=== PATIENT | male | born 1945 | race Caucasian/White ===

== ENCOUNTER 2017-12-15 21:28 | Inpatient (IN) | payer OTHER, MEDICARE ==
[~2017-12-15] VITALS: Ht 172.7 cm; Wt 79.0 kg
[~2017-12-15 21:28] MED LIST: ASPI-516 CHEW; ASPI1TAB7 PO; GLUCTAB PO; INSU1INJ13 SQ; LANTUS2P SC; LISI10 PO; LISI10TA3 PO; METF500T4 PO; METFORMIN HOLD POST IV CONTRAST SCH; METO25 PO; METO25TA3 PO; NIFE60TA58 PO; PRIL20CA PO; SIMV40TA PO; SUBO8MIS SL; TAB-TAB PO; TICA1TAB PO; VENL-37 PO; ZOFR4TAB3 PO
[2017-12-16] VITALS (24 sets, daily range): BP systolic 115–158; BP diastolic 54–91; PULSE 46–84; RESP 18–20; TEMP 97.4–98.3; O2SAT 94–98
[2017-12-16] MEDS ORDERED: SODIUM CHLOR 0.9% 1000 ML INJ 1,000 ML IV SCH (00:52)
[2017-12-16] MEDS ORDERED: SODIUM CHLORIDE 0.9% FLUSH 10 ML FLUSH IV FLUSH PRN (01:00)
[2017-12-16] MEDS ORDERED: NITROGLYCERIN-D5W 50 MG/250 ML 250 ML IV PRN (01:00)
[2017-12-16] MEDS ORDERED: DEXTROSE 50% IN WATER 50 ML VIAL(D50) IV PUSH PRN (01:00)
[2017-12-16] MEDS ORDERED: GLUCAGON 1 MG/ML VIAL OTHER PRN (01:00)
[2017-12-16] MEDS ORDERED: ACETAMINOPHEN 325 MG TAB PO PRN (01:00)
[2017-12-16] MEDS ORDERED: HEPARIN-D5W 25,000 U/250 ML 250 ML IV PRN (01:00)
[2017-12-16] MEDS ORDERED: NALOXONE HCL 0.4 MG/ML AMP IV PUSH PRN (01:00)
[2017-12-16] MEDS ORDERED: MAGNESIUM HYDROXIDE SUSP 30 ML CUP PO PRN (01:00)
[2017-12-16] MEDS ORDERED: VENLAFAXINE HCL 25 MG TAB PO ONE (01:30)
--- NOTE | 2017-12-16 01:35 | HHI.HP ---
HPI Service [facility] Hospitalists Primary Care Physician Jose Manuel Gee M.D. Admission Diagnosis NSTEMI Diagnoses: Chief Complaint: Shortness of breath with exertion Travel History International Travel<30 Days: No Contact w/Intl Traveler <30 Da: No Traveled to Known Affected Are: No History of Present Illness This a 72-year-old male patient with past medical history which includes diabetes mellitus, CAD status post cardiac stent 1997 and coronary artery bypass graft 2000, hypertension and TIA with no residual effects as well as basal cell carcinoma removed from the left shoulder. Patient presents to [facility] with complaints of shortness of breath with exertion for the past 3 weeks. Patient reports he had stent placed in the right lower extremity proximally 3 weeks ago since that time he has, "just not felt like himself." Patient reports he experiences shortness of breath and fatigue after minimal exertion such as working on his motorcycle or cars. Patient denies specific chest pain but has had left arm numbness and jaw pain associated with his shortness of breath. Patient denies nausea vomiting or diaphoresis. These episodes last approximately 30 minutes and are relieved with rest. Patient denies nausea vomiting diarrhea constipation fevers chills cough congestion or weight gain. Review of Systems Except as stated in HPI: all other systems reviewed are Neg Past Family Social History Past Medical History diabetes mellitus, CAD status post cardiac stent 1997 and coronary artery bypass graft 2000, hypertension and TIA with no residual effects as well as basal cell carcinoma removed from the left shoulder Past Surgical History Cardiac stent placed 1997, coronary artery bypass graft 5 vessel 2000, right tib-fib repaired with hardware which later became infected and hardware was removed 3 years ago, right shoulder rotator cuff repair, basal cell carcinoma removed from left shoulder, right lower extremity angioplasty with stent placement 3 weeks ago Reported Medications Nifedipine ER 24 HR (Nifedipine) 60 Mg Tab 60 Mg PO DAILY Simvastatin 40 Mg Tab 40 Mg PO HS Metoprolol Tartrate 25 Mg Tab 25 Mg PO BID Tresiba Flextouch Pen Inj (Insulin Degludec Inj) 600 unit/3 ML Pen 46 Units SQ HS Brilinta (Ticagrelor) 60 Mg Tab 60 Mg PO BID Metformin ER (Metformin HCl) 500 Mg Sharmaine 500 Mg PO BID With evening meal Lisinopril 10 Mg Tab 10 Mg PO BID Aspirin 81 Mg Chew 81 Mg CHEW DAILY Effexor 37.5 Mg PO HS Allergies: Coded Allergies: No Known Allergies (Unverified , 04/14/14) Active Ordered Medications Current Medications Medications (Trade) Dose Ordered Sig/Angelica Route Start Time Stop Time Status Last Admin Sodium Chloride 1,000 ml @ 75 mls/hr [id number] IV 12/16/17 00:52 (NS Flush) 2 ml UNSCH PRN IV FLUSH 12/16/17 01:00 (NS Flush) 2 ml BID IV FLUSH 12/16/17 09:00 (Tylenol) 650 mg Q4H PRN PO 12/16/17 01:00 (Narcan Inj) 0.4 mg UNSCH PRN IV PUSH 12/16/17 01:00 (Cinthya-Colace) 1 tab BID PO 12/16/17 09:00 (Milk Of [place] Liq) 30 ml Q12H PRN PO 12/16/17 01:00 Heparin Sodium/ Dextrose 250 ml @ 0 mls/hr TITRATE PRN IV 12/16/17 01:00 UNV Nitroglycerin/ Dextrose 250 ml TITRATE PRN IV 12/16/17 01:00 UNV (Aspirin) 325 mg DAILY PO 12/16/17 09:00 (D50w (Vial) Inj) 50 ml UNSCH PRN IV PUSH 12/16/17 01:00 (Glucagon Inj) 1 mg UNSCH PRN OTHER 12/16/17 01:00 (NovoLOG SUPPLEMENTAL SCALE) 1 ACHS SLIDING SCALE SQ 12/16/17 08:00 (Prinivil) 10 mg BID PO 12/16/17 09:00 (Lopressor) 25 mg BID PO 12/16/17 09:00 (Pravachol) 80 mg HS PO 12/16/17 21:00 Family History Father secondary to [place] is 62 Mother at 68 of cancer unknown type Social History Patient denies EtOH use Quit smoking in 2000 prior to that had a [id number] history Smokes marijuana daily denies other illicit drug use Physical Exam Physical Exam GENERAL: This is a well-nourished, well-developed patient, in no apparent distress. SKIN: No rashes, ecchymoses or lesions. Cool and dry. HEAD: Atraumatic. Normocephalic. No temporal or scalp tenderness. EYES: Extraocular motions intact. No scleral icterus. No injection or drainage. CARDIOVASCULAR: Regular rate and rhythm RESPIRATORY: Clear to auscultation. Breath sounds equal bilaterally. GASTROINTESTINAL: Abdomen soft, non-tender, nondistended. MUSCULOSKELETAL: Extremities without clubbing, cyanosis, or edema. No joint tenderness, effusion, or edema noted. No calf tenderness. Negative Homans sign bilaterally. NEUROLOGICAL: Awake and alert. No focal deficits appreciated. Motor and sensory grossly within normal limits. Five out of 5 muscle strength in all muscle groups. Normal speech. Caprini VTE Risk Assessment Caprini VTE Risk Assessment: Mod/High Risk (score >= 2) Caprini Risk Assessment Model Point Value = 1 Point Value = 2 Point Value = 3 Point Value = 5 Age 41-60 Minor surgery BMI > 25 kg/m2 Swollen legs Varicose veins or History of unexplained or recurrent spontaneous Oral contraceptives or hormone replacement Sepsis (< 1 month) Serious lung disease, including pneumonia (< 1 month) Abnormal pulmonary function Acute myocardial infarction Congestive heart failure (< 1 month) History of inflammatory bowel disease Medical patient at bed rest Age 61-74 Arthroscopic surgery Major open surgery (> 45 min) Laparoscopic surgery (> 45 min) Malignancy Confined to bed (> 72 hours) Immobilizing plaster cast Central venous access Age >= 75 History of VTE Family history of VTE Factor V Leiden Prothrombin [id number] Lupus anticoagulant Anticardiolipin antibodies Elevated serum homocysteine Heparin-induced thrombocytopenia Other congenital or acquired thrombophilia Stroke (< 1 month) Elective arthroplasty Hip, pelvis, or leg fracture Acute spinal cord injury (< 1 month) Prophylaxis Regimen Total Risk Factor Score Risk Level Prophylaxis Regimen 0-1 Low Early ambulation 2 Moderate Order ONE of the following: *Sequential Compression Device (SCD) *Heparin 5000 units SQ BID 3-4 Higher Order ONE of the following medications: *Heparin 5000 units SQ TID *Enoxaparin/Lovenox 40 mg SQ daily (WT < 150 kg, CrCl > 30 mL/min) *Enoxaparin/Lovenox 30 mg SQ daily (WT < 150 kg, CrCl > 10-29 mL/min) *Enoxaparin/Lovenox 30 mg SQ BID (WT < 150 kg, CrCl > 30 mL/min) AND/OR *Sequential Compression Device (SCD) 5 or more Highest Order ONE of the following medications: *Heparin 5000 units SQ TID (Preferred with Epidurals) *Enoxaparin/Lovenox 40 mg SQ daily (WT < 150 kg, CrCl > 30 mL/min) *Enoxaparin/Lovenox 30 mg SQ daily (WT < 150 kg, CrCl > 10-29 mL/min) *Enoxaparin/Lovenox 30 mg SQ BID (WT < 150 kg, CrCl > 30 mL/min) AND *Sequential Compression Device (SCD) Assessment and Plan Problem List: (1) NSTEMI (non-ST elevated myocardial infarction) ICD Code: I21.4 - Non-ST elevation (NSTEMI) myocardial infarction Plan: Patient presents to [facility] with complaints of worsening shortness of breath with exertion associated with left arm numbness and jaw pain. Symptoms resolved after approximately 30 minutes of rest Patient has had prior CAD with coronary artery bypass graft 2000 and cardiac stent 1997 Initial troponin 0.24 repeat troponin 0 0.79 NPO Patient placed on heparin drip Nitropaste Aspirin daily Consult cardiology ER physician spoke with Dr. Pardo Lipid profile in a.m. Continue home beta-jaron Echocardiogram in a.m. (2) CAD (coronary artery disease) ICD Code: I25.10 - Atherosclerotic heart disease of [place] coronary artery without angina pectoris Status: Chronic Plan: See above (3) HTN (hypertension) ICD Code: I10 - Essential (primary) hypertension Status: Acute Plan: Continue patient's home metoprolol Continue patient's home lisinopril (potassium on admission 5.7 specimen noted to be hemolyzed) Repeat potassium in a.m. Hold nifedipine monitor blood pressure trend (4) DM (diabetes mellitus) ICD Code: E11.9 - Type 2 diabetes mellitus without complications Status: Chronic Plan: Patient takes metformin and Tresiba hold these home medications Accu-Cheks before meals at bedtime with sliding scale insulin coverage Assessment and Plan Case discussed with Dr. Zaman Physician Certification 2 Midnight Certification Type: Admission for Inpatient Services Order for Inpatient Services The services are ordered in accordance with Medicare regulations or non- Medicare payer requirements, as applicable. In the case of services not specified as inpatient-only, they are appropriately provided as inpatient services in accordance with the 2-midnight benchmark. Estimated LOS (days): 3 days is the estimated time the patient will need to remain in the hospital, assuming treatment plan goals are met and no additional complications. Post-Hospital Plan: Home Raya Yang Dec 16, 2017 01:35
[2017-12-16] MEDS ORDERED: HEPARIN 25,000 UNITS-D5W 250 ML - PREMIX IV PRN (01:45)
[2017-12-16] MEDS ORDERED: NITROGLYCERIN/DEXTROSE 5% 250 ML for chest pain IV PRN (02:00)
[2017-12-16 02:47] LABS: HEMATOCRIT 46.8 % (39.0-51.0); HEMOGLOBIN 16.3 GM/DL (13.0-17.0); MEAN CELL VOLUME 86.3 FL (80.0-100.0); MEAN CORPUSCULAR HEMOGLOBIN 30.1 PG (27.0-34.0); MEAN CORPUSCULAR HGB CONC 34.9 % (32.0-36.0); PLATELET COUNT 191 TH/MM3 (150-450); RED BLOOD COUNT 5.42 MIL/MM3 (4.50-5.90); RED CELL DISTRIBUTION WIDTH 13.4 % (11.6-17.2)
[2017-12-16 05:23] LABS: PROTHROMBIN TIME - PATIENT 10.4 SEC (9.8-11.6)
[2017-12-16] MEDS ORDERED: NITROGLYCERIN 2% OINT 1 GM PACKET TOPICAL SCH (06:00)
[2017-12-16] MEDS: INSULIN ASPART SUPPLEMENTAL SCALE SQ SCH ×4 (08:00→21:00)
[2017-12-16] MEDS ORDERED: ASPIRIN 325 MG TAB PO SCH (09:00)
[2017-12-16] MEDS: DOCUSATE SODIUM 50 MG/SENNA 8.6 MG TAB PO SCH ×2 (09:00→21:00)
[2017-12-16] MEDS: METOPROLOL TARTRATE 25 MG TAB PO SCH ×2 (09:07→21:54)
[2017-12-16] MEDS: SODIUM CHLORIDE 0.9% FLUSH 10 ML FLUSH IV FLUSH SCH ×2 (09:07→21:00)
[2017-12-16] MEDS: LISINOPRIL 10 MG TAB PO SCH ×2 (09:07→21:54)
[2017-12-16] MEDS ORDERED: NITROGLYCERIN INJ 5 ML ONE (10:20)
[2017-12-16] MEDS ORDERED: HEPARIN SODIUM - IV 10,000 UNITS/10 ML VIAL ONE (10:20)
[2017-12-16] MEDS ORDERED: VERAPAMIL HCL 5 MG/2 ML VIAL ONE (10:20)
[2017-12-16 10:21] LABS: CHOLESTEROL/ HDL RATIO 3.93 RATIO; HDL CHOLESTEROL 33.3 MG/DL (40.0-60.0)
[2017-12-16] MEDS ORDERED: HEPARIN-NS/PF INJ 1,000 ML ONE (10:23)
[2017-12-16 10:28] LABS: TROPONIN I 1.58 NG/ML (0.02-0.05)
[2017-12-16] MEDS ORDERED: MIDAZOLAM HCL 2 MG/2 ML VIAL ONE (10:29)
--- NOTE | 2017-12-16 11:40 | CATHPROC ---
[employer] HIS Report Study Information Study Number Admission Scheduled Start Study Start [id number] Dec 15 2017 9:38PM 12/16/2017 Dec 16 2017 10:14AM [place] Service Cardiac Catheterization Admit Source Facility Department Emergency department [facility] - [facility] Physician and Clinical Staff Initial Edis Aguirre Candy Catcher Melchor Back,PENELOPE Candy Catcher Geovani Guzmán,PENELOPE Recorder Quita Escalera RCIS TECH2 Scrub Ovidio Martínez RCIS(BS) Procedures Performed Procedure Location (Site) Vessel Name Coronary Angiograms LCA Left Coronary Coronary Angiograms RCA Right Coronary Coronary Angiograms RAPP-LAD Left Coronary Coronary Angiograms SVG-OM CIRC Coronary Angiograms Gft. Stump 1 SVG Graft Equipment Time Cold Rolling Machine Setter Description Size Mfg Part Number Used/Scraped TRANSDUCER, TRUWAVE [id number] 10:16 NICOLE LONDON * Used W/STOCKCOCK *[id number] INTRODUCER SET, 10:16 [employer] FR 5 [id number] *[id number] Used MICROPUNCTURE STIFF [id number] *[id number] [id number] *[id number] 10:16 [employer]e BLANKET,WARM AIR CCL * Used *[id number] 10:16 [employer] PACK, CCL CUSTOM * Used *[id number] 11:04 MEDTRONIC JL 4.0 DXTERITY CATHETER FR 5 Used *[id number] 10:16 [employer] WIRE, 3MMJ .035 180CM 180CM Used *[id number] 10:16 NAMIC MANIFOLD, 4 PORT * Used *[id number] 10:16 NYCOMED OMNIPAQUE, 350 MG, 150ML 150ML [id number] Used [id number] 10:16 TERUMO MEDICAL SHEATH, FR5 TERUMO (10CM) FR 5 Used *[id number] Equipment Model, Serial, Lot Number and Expiration Data Description Model Number Serial Number Lot Number Expiration Date JL 4.0 DXTERITY CATHETER [id number] 04-16-2020 History: Current Medications Medication Dosage/Unit Route Frequency Last Date/Time Taken ASA LISINOPRIL Glucophage BRILINTA Statins (any) History: Allergies Allergy Reaction No Known Allergies History: Risk Factors Family History of Hypertension Dyslipidemia Previous MT Previous Heart Failure Premature CAD Yes Yes Yes Yes No Prior Valve Prior PCI Prior PCIDate Prior CABG Prior CABGDate Surgery No Yes 07/01/1997 Yes 07/01/2000 Cerebrovascular Peripheral Artery Chronic Lung On Dialysis Diabetes Diabetes Therapy Disease Disease Disease No Yes Yes No Yes Oral History: Symptoms/Diagnosis Selection Items Chest pain MAGAÑA History: CV Disease Selection Items Known CAD MT History: Stress Tests Stress or Imaging Studies Performed No History: MT/CV Data Previous CABG Date 07/01/2000 History: Other Current Smoker Method Quit Packs a Day Years Used Pack Years No Cigarettes 17 Years Ago 1 30 30 Labs Hgb (g/dl) Hct (%) RBC (MIL/MM3) WBC (l/cumm) Platelets (thousands) 11.60-17.00 35.00-51.00 4.00-5.90 4.00-11.00 150.00-450.00 16.3 46.8 5.9 8.2 191 Glucose (mg/dl) BUN (mg/dl) Creatinine (mg/dl) BUN:Creatinine (1:x) 74.00-106.00 7.00-18.00 0.50-1.30 10.00-20.00 248 16 1.2 13.3 Na (meq/l) K (meq/l) Cl (meq/l) CO2 (mmol/L) Ca (mg/dl) 136.00-145.00 3.50-5.10 98.00-107.00 21.00-32.00 8.50-10.10 137 5.7 107 22 8.4 PT (sec) PTT (sec) INR (PTT:PT) 9.80-11.60 24.30-30.10 0.90-1.10 10.4 70.9 1 Troponin I (ng/ml) CPK (u/l) CPK-MB (ng/ML) 0.02-0.05 26.00-308.00 0.50-3.60 1.58 176 Not Drawn Medication Medication Total Dose (Bolus/Oral) Medication Total Dosage/Unit 1% XYLOCAINE 20 mL FENTANYL 50 mcg VERSED 1 mg Medications (Bolus/Oral) Medication Time Given Dosage/Unit Administered By Reason VERSED 12/16/2017 10:44:33 AM 0.5 mg Melchor Back 0.5 mg VERSED given in lab by Melchor Back RN in Left Antecubital via Peripheral IV. Ordered by Prieto rson, Vincent G. FENTANYL 12/16/2017 10:45:12 AM 25 mcg Wong, Melchor 25 mcg FENTANYL given in lab by Melchor Back RN in Left Antecubital via Peripheral IV. Ordered by Edis Powell 1% XYLOCAINE 12/16/2017 10:45:26 AM 20 mL Edis Rubin Patient arrived on 20 mL 1% XYLOCAINE given by Edis Rubin in Right Groin via Subcutaneous. VERSED 12/16/2017 10:50:31 AM 0.5 mg Wong, Melchor 0.5 mg VERSED given in lab by Melchor Back RN in Left Antecubital via Peripheral IV. Ordered by Edis Suggs FENTANYL 12/16/2017 10:51:38 AM 25 mcg Wong, Melchor 25 mcg FENTANYL given in lab by Melchor Back RN in Left Antecubital via Peripheral IV. Ordered by Edis Powell Medication (Drip) Medication Time Given Dosage/Unit Concentration/Unit Diluent (ml) Solution IV Solutions 12/16/2017 10:28:13 AM 0 mL (IV) 1000 NaCl .9 Patient arrived on IV Solutions in Left Antecubital via Peripheral IV. Pump/Drip Flow = 20 ml/hr usin g NaCl .9. Initial Case Assessment Cardiovascular HR Rhythm NIBP Chest Pain 53 SB 157/88 0 Circulatory - Right Pulses Dorsalis Pedis Femoral d 2 Scale (0,1,2,3,4,d) Circulatory - Left Pulses Dorsalis Pedis Femoral 2 2 Scale (0,1,2,3,4,d) Neurological State Oriented to time-place- Alert Moves all extremities person Respiration - General Respiration Rate SpO2 (%) (B/min) 12 97 Final Case Assessment Cardiovascular HR Rhythm NIBP Chest Pain 56 sb 150/88 0 Circulatory - Right Pulses Dorsalis Pedis Femoral d 2 Scale (0,1,2,3,4,d) Circulatory - Left Pulses Dorsalis Pedis Femoral 2 2 Scale (0,1,2,3,4,d) Neurological State Oriented to time-place- Alert Moves all extremities person Respiration - General Respiration Rate SpO2 (%) (B/min) 20 94 Chronological Log Time Study Chronological Log 10:14:03 Patient arrived via Bed. 10:14:04 Patient Name, D.O.B, / Armband Verified By R.N. 10:14:04 Consent signed by the physician and the patient and verified by the [facility] staff. 10:14:05 Pre-op and post- op instructions given; patient acknowledges understanding of instructions. 10:14:06 Verbal Stimulation=2 Physical Stimulation=2 Airway=2 Respiration=2 TOTAL=8. (0=absent, 1=li mited, 2=present) 10:14:07 Presedation assessment performed by [facility] RN. 10:14:14 Patient has been NPO for More than 6Hrs. 10:14:16 Skin Breakdown-NONE PER PATIENT 10:14:18 Shireen Prominences Protected Vitals capture started with the following parameters, Patient=Adult, Interval=5 min, Initial Pr odngwg=982 mmHg, 10:18:56 Deflation Rate=5 mmHg, Cuff placed on Left Arm 10:20:18 HR=56 bpm, IKFL=080/99 mmhg, SpO2=96 %, Resp=10 B/min 10:24:44 HR=51 bpm, DQLV=322/88 mmhg, SpO2=96 %, Resp=14 B/min 10:27:58 Reference ECG taken 10:28:12 A # 20 IV was noted in the Antecubital (left). Grade = 0 10:28:13 Patient arrived on IV Solutions in Left Antecubital via Peripheral IV. Pump/Drip Flow = 20 ml/hr using NaCl .9. 10:28:14 History and physical on the chart or being dictated. Assessment: Initial Case, HR=53 BPM, Rhythm=SB, AFCZ=983/88 mmhg, Chest Pain=0 Right Pulses: Jj Ped=d, Femoral=2 10:28:16 Left Pulses: Jj Ped=2, Femoral=2 Neurological: State=Alert, Ox3, BACH Respiration: Resp=12 B/min, SpO2=97 % 10:29:06 Bilateral groins prepped with 2% chlorhexidine, and draped after a 3 minute waiting time. 10:29:41 HR=53 bpm, ADCO=374/93 mmhg, SpO2=96.0 %, Resp=13 B/min 10:30:37 MD paged 10:34:45 HR=52 bpm, OZWF=273/87 mmhg, SpO2=95.0 %, Resp=14 B/min 10:35:23 Pressure channel 1 zeroed. 10:37:25 MD arrived. 10:39:44 HR=53 bpm, XRMT=127/89 mmhg, SpO2=94.0 %, Resp=14 B/min Time Out. Correct patient, correct procedure, correct physician, labs, allergies, and equipment verified with lab pack chemist 10:44:02 team present. Fire risk assesment completed (see hard stop sheet for coding). Time Out Conc urred by MD and individual staff in procedure. 10:44:33 0.5 mg VERSED given in lab by Melchor Back RN in Left Antecubital via Peripheral IV. Order ed by Edis Rubin 10:44:43 HR=51 bpm, NGIE=565/93 mmhg, SpO2=97.0 %, Resp=16 B/min 25 mcg FENTANYL given in lab by Melchor Back RN in Left Antecubital via Peripheral IV. Ordered by Edis Rubin 10:45:12 G. 10:45:25 Case Start 10:45:26 Patient arrived on 20 mL 1% XYLOCAINE given by Edis Rubin in Right Groin via Subcu taneous. 10:48:57 Access site was Right Femoral Artery. A INTRODUCER SET, MICROPUNCTURE STIFF FR 5 was advanced into the Fem Art (right) using the Perc utaneous 10:49:28 technique. 10:49:44 HR=50 bpm, MMYM=128/89 mmhg, SpO2=95.0 %, Resp=10 B/min A SHEATH, FR5 TERUMO (10CM) FR 5 was exchanged in the Fem Art (right). This was necessary in or usama to 10:50:03 accomodate a larger catheter. 10:50:31 0.5 mg VERSED given in lab by Melchor Back RN in Left Antecubital via Peripheral IV. Order ed by Edis Rubin. A JR 4.0 INFINITI CATHETER FR 5 was advanced over a wire. OMNIPAQUE, 350 MG, 150ML 150ML was us ed for 10:50:51 injections. 25 mcg FENTANYL given in lab by Melchor Back RN in Left Antecubital via Peripheral IV. Ordered by Rubin, Vincent 10:51:38 G. Recorded Pressure: LV, HR=55, Condition=Condition 1 10:52:00 (Left Ventricle) LV 145/6/16 Recorded Pressure: LV, Ao, HR=53, Condition=Condition 1 10:52:23 (Left Ventricle) LV 147/5/17, (Aorta) Ao 152/67/98 10:54:49 HR=49 bpm, MTOP=446/80 mmhg, SpO2=93.0 %, Resp=9 B/min 10:56:00 The RCA was injected and visualized at various angles. contrast used. 10:56:17 The Gft. Stump 1 was injected and visualized at various angles. OMNIPAQUE, 350 MG, 150ML 15 0ML used. 10:57:34 The SVG-OM was injected and visualized at various angles. OMNIPAQUE, 350 MG, 150ML 150ML us ed. 10:59:46 HR=50 bpm, EYDN=194/82 mmhg, SpO2=92.0 %, Resp=15 B/min 11:00:34 The RAPP-LAD was injected and visualized at various angles. OMNIPAQUE, 350 MG, 150ML 150ML used. After removing the current catheter a JL 4.0 DXTERITY CATHETER FR 5 was advanced over a WIRE, 3 MMJ .035 180CM 11:03:08 180CM. 11:04:43 HR=54 bpm, XWEN=501/87 mmhg, SpO2=90.0 %, Resp=18 B/min 11:05:20 The LCA was injected and visualized at various angles. OMNIPAQUE, 350 MG, 150ML 150ML used . 11:09:46 HR=53 bpm, HZLC=111/81 mmhg, SpO2=93.0 %, Resp=14 B/min After removing the current catheter a AR MOD INFINITI CATHETER FR 5 was advanced over a WIRE, 3 MMJ .035 180CM 11:11:54 180CM. 11:12:47 The RCA was injected and visualized at various angles. OMNIPAQUE, 350 MG, 150ML 150ML used . 11:14:04 Catheter was removed 11:14:45 HR=56 bpm, HJSC=364/79 mmhg, SpO2=93.0 %, Resp=12 B/min 11:16:52 Case End (Physician broke scrub) 11:19:46 HR=51 bpm, MKKP=721/85 mmhg, SpO2=94.0 %, Resp=15 B/min 11:21:23 Sheath removed; pressure applied to access site. 11:25:16 HR=51 bpm, SAGP=433/87 mmhg, SpO2=95 %, Resp=16 B/min 11:29:44 HR=53 bpm, ITVX=933/94 mmhg, SpO2=95.0 %, Resp=13 B/min 11:34:43 HR=56 bpm, NNVV=022/88 mmhg, SpO2=94.0 %, Resp=23 B/min 11:36:32 Hemostasis obtained. 11:36:59 Sterile dressing applied to site 11:37:02 No case complications noted. 11:37:03 Cine recording checked. Assessment: Final Case, HR=56 BPM, Rhythm=sb, ZOGN=270/88 mmhg, Chest Pain=0 Right Pulses: Jj Ped=d, Femoral=2 11:37:05 Left Pulses: Jj Ped=2, Femoral=2 Neurological: State=Alert, Ox3, BACH Respiration: Resp=20 B/min, SpO2=94 % 11:38:58 Patient moved to bed. 11:39:25 Vitals capture stopped. 11:40:19 Patient transported to [facility]. End Study - Contrast Media Used In Study Contrast Total Opened (mL) Total Used (mL) Total Wasted (mL) Omnipaque 95 95 0 End Study - Maximum Contrast Load Max Contrast Load (mL) 343.0 End Study - Radiation Exposure Fluoro Time (minutes) 8.5 End Study - Sheaths Sheaths Pulled By Sheath Hold Time (min) Ovidio Martínez End Study - Patient Disposition Complications Transferred To Interventional Outcome No Telemetry Bed No attempt made
[2017-12-16] MEDS ORDERED: FUROSEMIDE 20 MG/2 ML VIAL IV PUSH ONE (11:45)
[2017-12-16] MEDS ORDERED: MISC INFORMATION XX ONE (11:45)
[2017-12-16] MEDS ORDERED: ISOSORBIDE MONONITRATE 30 MG CR TAB (IMDUR) PO ONE (12:30)
--- NOTE | 2017-12-16 12:36 | MA ---
cc: Edis Rubin DO DATE: 12/16/2017 DATE OF PROCEDURE: 12/16/2017. PROCEDURE: Left heart catheterization, coronary angiogram, bypass angiogram, moderate sedation, 30 minutes. PREOPERATIVE DIAGNOSIS: Shortness of breath, non-ST elevation myocardial infarction, coronary artery disease, history of coronary artery bypass grafting x5. POSTOPERATIVE DIAGNOSIS: Multivessel coronary artery disease, history of coronary artery bypass grafting x5 (3/5 grafts patent). MEDICATIONS: Versed 1 mg, fentanyl 50 mcg. CONTRAST USED: 5 mL. MODERATE SEDATION: 30 minutes. FLUOROSCOPY: 8.5 minutes. FRAILTY SCORE: 3. 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 Andi Richard in [place]. Apparently, he has been mostly short of breath over the past 3 weeks and occasionally gets numbness to his jaw and his left arm, although he relates this to his arm falling asleep at times. He presented to the [facility] and was transferred to [facility] where he was found to have an elevated troponin and recommended cardiac catheterization. The risks, benefits and alternatives were explained to him and he consented as such. He was brought to the lab and prepped in the usual sterile fashion. The right femoral artery was accessed using modified Seldinger technique and placement of a 5-Ch[place] sheath. This was easily aspirated and flushed. A JR4 was advanced over a J-wire to the ascending aorta and across the aortic valve for measurement of left ventricular pressure. This was pulled back across the aortic valve showing no significant gradient of aortic stenosis. JR4 was used for selective angiography of the [place] right coronary artery system, saphenous vein graft stump, saphenous vein graft to first and second obtuse marginal, and RAPP to LAD. This is exchanged out for a JL4 which was used for selective angiography of the left coronary artery system. A JL4 was exchanged out for an AR MOD, which was used for a better selective picture of the RCA. AR MOD was removed over a J-wire. Femoral sheath was removed and pressure held for hemostasis. The patient left the label maker cardiovascularly stable. FINDINGS: LEFT MAIN: Normal-sized vessel with adequate reflux. It bifurcates into an LAD and circumflex. LAD: Normal-sized vessel with 70% disease in the proximal portion. Mid-portion is 100% occluded. It does give off 1 small diagonal, which is overall about 1 millimeter in size. LEFT CIRCUMFLEX: 100% occluded in the proximal portion. RCA: Anterior takeoff has a 99% stenosis in the mid-portion and 100% stenosis distally with possibly some mild competitive flow noted. RAPP to LAD: Patent and supplies the mid-portion of the LAD, but distal to this is 100% occluded. The small portion of the mid-LAD that is patent, supplies collaterals through septals to a PDA distally. Saphenous vein graft to first and second obtuse marginal is patent. It also supplies collaterals to a posterolateral branch of the RCA as well as the distal LAD, which is overall a small vessel. Saphenous vein graft stump, most likely also a jump graft which was occluded. LVEDP: 17. IMPRESSIONS: 1. Non-ST elevation myocardial infarction. 2. Shortness of breath. 3. Coronary artery disease with a history of coronary artery bypass grafting x5 (3/5 grafts patent). RECOMMENDATIONS: 1. Mr. Garcia appears to have extensive coronary artery disease, although none interveneable at this time. 2. Overall, I do not believe that he would be a repeat coronary artery bypass grafting candidate as his distal vessels, which are supplied by collaterals, are overall small. 3. He will continue on medical management. We will continue him on his aspirin, Brilinta, beta jaron, and calcium channel jaron therapy. I have added Imdur. 4. His LVEDP is 17 and he has been significantly short of breath and this episode may have happened weeks ago when this started. We will attempt to diurese him somewhat. 5. We will check a 2-D echo to look at his overall left ventricular function, cardiac structure and possible valvulopathies. 6. His metformin will be held for 48 hours post-procedure. 7. I have tried to reach out to his hyperbaric welder diver, Dr. Richard to further discuss this case, but overall I believe his only option is medical management at this time. Thank you for allowing me to see Ignacio Garcia. If there are any questions, please do not hesitate to call. DO CARLA Brothers/LEANDRO , 11:54 AM , 12:35 PM
--- NOTE | 2017-12-16 12:46 | MB ---
cc: Edis Rubin DO DATE: 12/16/2017 REASON FOR CONSULTATION: NSTEMI. HISTORY OF PRESENT ILLNESS: Ignacio Garcia is a pleasant 72-year-old male who sees his senior accountant, Dr. Checo Mccarty in [place] and presented to [facility] due to shortness of breath. He states that he had angioplasty of his right lower extremity around 3 weeks ago and since that time, he has just not felt like himself. He has been short of breath with any type of exertion over the past 3 weeks. He does feel overall fatigued with the shortness of breath. He denies specific chest pain, but has had some jaw numbness, as well as he has felt like his left arm goes to sleep on him. When he had his previous heart attack, he had pain to his jaw and so he associates this with it and so that is why he came into the emergency room. He was found to have an elevated troponin and because of this, I was consulted for further management. In seeing him, he currently denies chest pain, shortness of breath, palpitations, presyncopal or syncopal episodes. PAST MEDICAL HISTORY: 1. Coronary artery disease. 2. Diabetes mellitus. 3. Hypertension. 4. TIA with no residual effects. 5. Basal cell carcinoma removed from left shoulder. PAST SURGICAL HISTORY: 1. Stent placed in an unknown vessel in 1997. 2. CABG x 5 (2000, unknown coronary anatomy, [facility]). 3. Right tib-fib repair with hardware, which later became infected and hardware was removed 3 years ago. 4. Right shoulder rotator cuff repair. 5. Recent balloon angioplasty within his right lower extremity of unknown anatomy. 6. Basal cell carcinoma removed from left shoulder. ALLERGIES: NO KNOWN DRUG ALLERGIES. MEDICATIONS: 1. Brilinta 60 mg b.i.d. 2. Zocor 40 mg every night. 3. Metoprolol tartrate 25 mg b.i.d. 4. Nifedipine 60 mg daily. 5. Lisinopril 10 mg b.i.d. 6. Aspirin 81 mg daily. 7. Metformin 500 mg b.i.d. 8. Tresiba 46 units every night. FAMILY HISTORY: Father from a heart attack at the age of 62. Mother of an unknown cancer at 68. SOCIAL HISTORY: The patient denies alcohol abuse. He previously smoked, but quit in 2000. He smokes marijuana daily, but denies other illicit drug use. REVIEW OF SYSTEMS: Fourteen systems were reviewed including osteopathic. Pertinent positives and negatives as above, otherwise negative. PHYSICAL EXAMINATION: VITAL SIGNS: Temperature 98.2, heart rate 71, blood pressure 139/77, respirations 18, pulse oximetry 96% on room air. GENERAL: The patient appears well in no acute distress. Alert, awake and oriented x 3. HEENT: Extraocular muscles intact. Mucous membranes moist. NECK: Supple. No JVD at 45 degrees. No carotid bruits heard bilaterally. Carotid upstroke is brisk in nature. HEART: Regular rate and rhythm. Positive first and second heart sounds with no noted murmurs, gallops or rubs. LUNGS: Clear to auscultation bilaterally. No wheezes, rales or rhonchi. ABDOMEN: Soft, nontender, nondistended. No organomegaly noted. EXTREMITIES: Show no clubbing, cyanosis or edema. Femoral and distal pulses intact bilaterally. NEUROLOGIC: No focal deficits. SKIN: Warm, dry and intact. OSTEOPATHIC: No kyphoscoliosis, lordosis or paraspinal tender points. LABORATORY DATA: Hemoglobin 16.3, hematocrit 46.8, platelets 191. Troponin 1.63. Potassium 5.7, BUN 16, creatinine 1.2. Hemoglobin A1c 6.8. Electrocardiogram (12/16/2017 at 0138): Sinus rhythm, lateral ST-T wave changes possibly due to ischemia. No significant change from 12/16/2015. IMPRESSIONS: 1. Non-ST elevation myocardial infarction. 2. Shortness of breath, possibly due to ischemic coronary artery disease versus elevated left ventricular end-diastolic pressure. 3. History of coronary artery disease with bypass x 5. 4. Previous TIA with no residual effects. 5. Peripheral artery disease with recent balloon angioplasty of his right lower extremity. 6. Diabetes mellitus. RECOMMENDATIONS: 1. Mr. Garcia presented with shortness of breath for the past couple of weeks and an elevated troponin. Because of this, he will be recommended cardiac catheterization. 2. Risks, benefits, and alternatives were explained to him and he consented as such. 3. Post procedure, we will check a 2-D echo to look at his overall left ventricular function, cardiac structure and possible valvulopathies. 4. As this is a new ischemic event, his Brilinta will be increased to 90 mg b.i.d. 5. Metformin will need to be held 48 hours post-procedure. 6. Further recommendations will be made based on the hospital course. Thank you for allowing me to see Ignacio Garcia. If there are any questions, please do not hesitate to call. Edis Rubin DO VGP/DL , 12:03 PM , 12:45 PM
[2017-12-16] MEDS: TICAGRELOR 90 MG TAB PO SCH (13:35)
[2017-12-16] MEDS ORDERED: VENLAFAXINE HCL 25 MG TAB PO SCH (21:00)
[2017-12-16] MEDS ORDERED: PRAVASTATIN SOD 80 MG TAB PO SCH (21:00)
--- NOTE | 2017-12-16 23:00 | EKG ---
Date Performed: 12/16/2017 Time Performed: 01:38:06 PTAGE: 72 years EKG: Sinus arrhythmia Lateral T wave changes may be due to myocardial ischemia Abnormal ECG PREVIOUS TRACING : 12/16/2015 16.52 DOCTOR: Nora Dixon Interpretating Date/Time 12/16/2017 22:54:36
[2017-12-17] VITALS (22 sets, daily range): BP systolic 95–138; BP diastolic 55–76; PULSE 50–81; RESP 16–18; TEMP 97.8–98.8; O2SAT 93–96
[2017-12-17] MEDS: TICAGRELOR 90 MG TAB PO SCH ×2 (00:03→08:43)
[2017-12-17 05:51] LABS: BASOPHIL # 0.1 TH/MM3 (0-0.2); BASOPHIL % 0.8 % (0.0-2.0); EOSINOPHIL # 0.2 TH/MM3 (0-0.4); EOSINOPHIL % 1.8 % (0.0-4.0); HEMATOCRIT 53.6 % (39.0-51.0); HEMOGLOBIN 18.1 GM/DL (13.0-17.0); LYMPH % 16.9 % (9.0-44.0); LYMPHOCYTE # 1.6 TH/MM3 (1.0-4.8); MEAN CELL VOLUME 86.6 FL (80.0-100.0); MEAN CORPUSCULAR HEMOGLOBIN 29.2 PG (27.0-34.0); MEAN CORPUSCULAR HGB CONC 33.7 % (32.0-36.0); MEAN PLATELET VOLUME 7.7 FL (7.0-11.0); MONOCYTE # 0.8 TH/MM3 (0-0.9); NEUT % 72.5 % (16.0-70.0); PLATELET COUNT 229 TH/MM3 (150-450); RED BLOOD COUNT 6.19 MIL/MM3 (4.50-5.90); RED CELL DISTRIBUTION WIDTH 13.9 % (11.6-17.2); WHITE BLOOD COUNT 9.7 TH/MM3 (4.0-11.0)
[2017-12-17 06:23] LABS: BICARBONATE 19.2 MEQ/L (21.0-32.0); CREATININE 1.11 MG/DL (0.60-1.30)
[2017-12-17] MEDS ORDERED: ISOSORBIDE MONONITRATE 30 MG CR TAB (IMDUR) PO SCH (07:00)
[2017-12-17] MEDS: INSULIN ASPART SUPPLEMENTAL SCALE SQ SCH ×3 (08:00→17:00)
[2017-12-17] MEDS: LISINOPRIL 10 MG TAB PO SCH (08:44)
[2017-12-17] MEDS: METOPROLOL TARTRATE 25 MG TAB PO SCH (08:45)
[2017-12-17] MEDS: DOCUSATE SODIUM 50 MG/SENNA 8.6 MG TAB PO SCH (08:45)
[2017-12-17] MEDS: SODIUM CHLORIDE 0.9% FLUSH 10 ML FLUSH IV FLUSH SCH (08:46)
[2017-12-17] MEDS ORDERED: ASPIRIN 81 MG CHEW TAB CHEW SCH (09:00)
--- NOTE | 2017-12-17 10:58 | PD.CARD.PN ---
Subjective Subjective Remarks Feels great Diuresed well No chest pain/SOB Objective Medications Current Medications Medications (Trade) Dose Ordered Sig/Angelica Route Start Time Stop Time Status Last Admin (NS Flush) 2 ml UNSCH PRN IV FLUSH 12/16/17 01:00 (NS Flush) 2 ml BID IV FLUSH 12/16/17 09:00 12/17/17 08:46 (Tylenol) 650 mg Q4H PRN PO 12/16/17 01:00 (Narcan Inj) 0.4 mg UNSCH PRN IV PUSH 12/16/17 01:00 (Cinthya-Colace) 1 tab BID PO 12/16/17 09:00 (Milk Of Magnesia Liq) 30 ml Q12H PRN PO 12/16/17 01:00 (D50w (Vial) Inj) 50 ml UNSCH PRN IV PUSH 12/16/17 01:00 (Glucagon Inj) 1 mg UNSCH PRN OTHER 12/16/17 01:00 (NovoLOG SUPPLEMENTAL SCALE) 1 ACHS SLIDING SCALE SQ 12/16/17 08:00 12/17/17 08:00 (Prinivil) 10 mg BID PO 12/16/17 09:00 12/17/17 08:44 (Lopressor) 25 mg BID PO 12/16/17 09:00 12/17/17 08:45 (Pravachol) 80 mg HS PO 12/16/17 21:00 12/16/17 21:53 (Effexor) 37.5 mg HS PO 12/16/17 21:00 12/16/17 21:53 ([facility] Nursing Information) HOLD METFORMIN FOR... Q24H .XX 12/15/17 20:23 12/17/17 20:23 (Imdur) 30 mg DAILY@07 PO 12/17/17 07:00 12/17/17 06:00 (Aspirin Chew) 81 mg DAILY CHEW 12/17/17 09:00 12/17/17 08:44 (Brilinta) 90 mg BID PO 12/16/17 12:30 12/17/17 08:43 Vital Signs / I&O Vital Signs Date Time Temp Pulse Resp B/P (MAP) Pulse Ox O2 Delivery O2 Flow Rate FiO2 12/17/17 10:03 75 12/17/17 09:30 73 6/19/18 08:22 66 18 07:24 61 18 07:23 93 Room Air 12/17/17 07:21 98.8 74 18 107/70 (82) 93 18 06:00 74 18 05:00 63 18 05:00 76 12/17/17 04:00 76 12/17/17 03:43 98.1 66 16 124/67 (86) 96 12/17/17 03:00 68 12/17/17 02:00 76 18 01:00 68 12/17/17 00:17 98.1 54 18 112/62 (79) 94 12/17/17 00:00 50 12/16/17 23:00 58 12/16/17 22:00 80 12/16/17 21:00 76 12/16/17 20:00 82 12/16/17 19:46 98.1 58 18 115/54 (74) 96 12/16/17 19:44 96 Room Air 12/16/17 19:27 64 18 126/88 (101) 98 18 19:00 67 12/16/17 15:30 58 18 146/87 (106) 98 18 15:21 97.9 59 18 137/78 (97) 98 18 14:30 59 18 149/86 (107) 98 18 14:00 46 18 157/79 (105) 97 12/16/17 13:30 51 18 158/81 (106) 95 12/16/17 13:01 48 18 146/81 (102) 94 12/16/17 12:30 53 18 143/77 (99) 95 18 12:14 97.4 54 18 154/86 (108) 95 18 12:07 97.8 54 18 154/86 (108) 94 I/O 12/16/18 6/18 6/18 618 18 12/17/17 07:00 15:00 23:00 07:00 15:00 23:00 Intake Total 480 ml 480 ml Output Total 500 ml 300 ml Balance -500 ml 180 ml 480 ml Intake Oral 480 ml 480 ml Output Urine Total 500 ml 300 ml # Voids 4 1 # Bowel Movements 0 2 Physical Exam GENERAL: NAD, AAOx3 SKIN: Warm and dry. HEAD: Atraumatic. Normocephalic. EYES: Pupils equal and round. No scleral icterus. No injection or drainage. ENT: No nasal bleeding or discharge. Mucous membranes pink and moist. NECK: Trachea midline. No JVD. CARDIOVASCULAR: Regular rate and rhythm. RESPIRATORY: No accessory muscle use. Clear to auscultation. Breath sounds equal bilaterally. GASTROINTESTINAL: Abdomen soft, non-tender, nondistended. Hepatic and splenic margins not palpable. MUSCULOSKELETAL: Extremities without clubbing, cyanosis, or edema. No obvious deformities. Right femoral no hematoma, distal pulses intact NEUROLOGICAL: Awake and alert. No obvious cranial nerve deficits. Motor grossly within normal limits. Five out of 5 muscle strength in the arms and legs. Normal speech. PSYCHIATRIC: Appropriate mood and affect; insight and judgment normal. Laboratory Laboratory Tests Test 12/16/17 12:42 12/17/17 05:02 12/17/17 05:07 Activated Partial Thromboplast Time 27.5 SEC White Blood Count 9.7 TH/MM3 Red Blood Count 6.19 MIL/MM3 Hemoglobin 18.1 GM/DL Hematocrit 53.6 % Mean Corpuscular Volume 86.6 FL Mean Corpuscular Hemoglobin 29.2 PG Mean Corpuscular Hemoglobin Concent 33.7 % Red Cell Distribution Width 13.9 % Platelet Count 229 TH/MM3 Mean Platelet Volume 7.7 FL Neutrophils (%) (Auto) 72.5 % Lymphocytes (%) (Auto) 16.9 % Monocytes (%) (Auto) 8.0 % Eosinophils (%) (Auto) 1.8 % Basophils (%) (Auto) 0.8 % Neutrophils # (Auto) 7.0 TH/MM3 Lymphocytes # (Auto) 1.6 TH/MM3 Monocytes # (Auto) 0.8 TH/MM3 Eosinophils # (Auto) 0.2 TH/MM3 Basophils # (Auto) 0.1 TH/MM3 CBC Comment DIFF FINAL Differential Comment Blood Urea Nitrogen 14 MG/DL Creatinine 1.11 MG/DL Random Glucose 156 MG/DL Calcium Level 9.0 MG/DL Sodium Level 137 MEQ/L Potassium Level 4.3 MEQ/L Chloride Level 106 MEQ/L Carbon Dioxide Level 19.2 MEQ/L Anion Gap 12 MEQ/L Estimat Glomerular Filtration Rate 65 ML/MIN Assessment and Plan Problem List: (1) NSTEMI (non-ST elevated myocardial infarction) ICD Codes: I21.4 - Non-ST elevation (NSTEMI) myocardial infarction (2) CAD (coronary artery disease) ICD Codes: I25.10 - Atherosclerotic heart disease of [place] coronary artery without angina pectoris Status: Chronic (3) HTN (hypertension) ICD Codes: I10 - Essential (primary) hypertension Status: Acute (4) DM (diabetes mellitus) ICD Codes: E11.9 - Type 2 diabetes mellitus without complications Status: Chronic Assessment and Plan 1) CAD/NSTEMI Hx of CABGx5 (3/5 grafts patent) Con't medical management Imdur added to BB/CCB 2) SOB Most likely fluid overload state Will watch weights and salt at home Diuresed well Awaiting echo, most likely ischemic cardiomyopathy 3) Restart Metformin tomorrow 4) If no problems with echo, may be discharged home for follow up with Edis Smiley DO Dec 17, 2017 10:58
[2017-12-17] MEDS ORDERED: ISOS30TA3 PO (11:48)
--- NOTE | 2017-12-17 11:50 | HHI.DCPOC ---
Discharge Care Plan Diagnosis: (1) DM (diabetes mellitus) (2) CAD (coronary artery disease) (3) HTN (hypertension) Goals to Promote Your Health * To prevent worsening of your condition and complications * To maintain your health at the optimal level Directions to Meet Your Goals Take your medications as prescribed Follow your dietary instruction Follow activity as directed Keep your appointments as scheduled Take your immunizations and boosters as scheduled If your symptoms worsen call your PCP, if no PCP go to Urgent Care Center or Emergency Room Smoking is Dangerous to Your Health. Avoid second hand smoke Call the 24-hour hour crisis hotline for domestic abuse at Oliver Mtz MD Dec 17, 2017 11:50
--- NOTE | 2017-12-17 11:51 | HHI.DS ---
Discharge Summary Admission Date Dec 15, 2017 at 21:38 Admitting Diagnosis NSTEMI (1) NSTEMI (non-ST elevated myocardial infarction) ICD Code: I21.4 - Non-ST elevation (NSTEMI) myocardial infarction (2) CAD (coronary artery disease) ICD Code: I25.10 - Atherosclerotic heart disease of [place] coronary artery without angina pectoris Status: Chronic (3) HTN (hypertension) ICD Code: I10 - Essential (primary) hypertension Status: Acute (4) DM (diabetes mellitus) ICD Code: E11.9 - Type 2 diabetes mellitus without complications Status: Chronic Brief History - From Admission This a 72-year-old male patient with past medical history which includes diabetes mellitus, CAD status post cardiac stent 1997 and coronary artery bypass graft 2000, hypertension and TIA with no residual effects as well as basal cell carcinoma removed from the left shoulder. Patient presents to [facility] with complaints of shortness of breath with exertion for the past 3 weeks. Patient reports he had stent placed in the right lower extremity proximally 3 weeks ago since that time he has, "just not felt like himself." Patient reports he experiences shortness of breath and fatigue after minimal exertion such as working on his motorcycle or cars. Patient denies specific chest pain but has had left arm numbness and jaw pain associated with his shortness of breath. Patient denies nausea vomiting or diaphoresis. These episodes last approximately 30 minutes and are relieved with rest. Patient denies nausea vomiting diarrhea constipation fevers chills cough congestion or weight gain. CBC/BMP: 12/17/17 0502 12/17/17 0507 Significant Findings Laboratory Tests Test 12/16/17 02:25 12/16/17 04:24 12/16/17 08:42 12/16/17 12:42 Troponin I 1.63 NG/ML (0.02-0.05) 1.58 NG/ML (0.02-0.05) Activated Partial Thromboplast Time 70.9 SEC (24.3-30.1) HDL Cholesterol 33.3 MG/DL (40.0-60.0) Test 12/17/17 05:02 12/17/17 05:07 Red Blood Count 6.19 MIL/MM3 (4.50-5.90) Hemoglobin 18.1 GM/DL (13.0-17.0) Hematocrit 53.6 % (39.0-51.0) Neutrophils (%) (Auto) 72.5 % (16.0-70.0) Random Glucose 156 MG/DL (74-106) Carbon Dioxide Level 19.2 MEQ/L (21.0-32.0) Estimat Glomerular Filtration Rate 65 ML/MIN (>89) Pt Condition on Discharge: Good Discharge Disposition: Disch w/ Home Health Serv Discharge Instructions DIET: Follow Instructions for: Heart Healthy Diet Activities you can perform: Regular-No Restrictions Oliver Mtz MD Dec 17, 2017 11:51
--- NOTE | 2017-12-17 11:51 | HHI.FF ---
Face to Face Verification Diagnosis: (1) NSTEMI (non-ST elevated myocardial infarction) (2) CAD (coronary artery disease) (3) HTN (hypertension) (4) DM (diabetes mellitus) Home Health Nursing Order: Medical education Signs/symptoms of disease process Medication education-adverse effect Nursing assessment with vital signs I have seen patient Ignacio Garcia on 12/17/17. My clinical findings support the need for the requested home health care services because: Patient has SOB I certify that my clinical findings support that this patient is homebound because: Poor cardiac reserve Oliver Mtz MD Dec 17, 2017 11:51
--- NOTE | 2017-12-17 18:52 | ECHRPT ---
Indication: CONCLUSIONS The left ventricular systolic function is severely reduced with an estimated ejection fraction in th e range of 25-30%. Overall global hypokinesis. Inferior wall akinesis, overall inferior wall thinned out, consistent with scar. Trace mitral valve regurgitation. There is trace tricuspid valve regurgitation. Mild pulmonary valve regurgitation. BP: / HR: Rhythm: MEASUREMENTS (Male / Female) Normal Values Technical Quality: 2D ECHO LV Diastolic Diameter PLAX 4.3 cm 4.2 - 5.9 / 3.9 - 5.3 cm LV Systolic Diameter PLAX 3.9 cm IVS Diastolic Thickness 1.6 cm 0.6 - 1.0 / 0.6 - 0.9 cm LVPW Diastolic Thickness 0.7 cm 0.6 - 1.0 / 0.6 - 0.9 cm LV Relative Wall Thickness 0.5 RV Internal Dim ED PLAX 1.8 cm LA Systolic Diameter LX 3.9 cm 3.0 - 4.0 / 2.7 - 3.8 cm DOPPLER Mitral E Point Velocity 23.2 cm/s Mitral A Point Velocity 51.3 cm/s Mitral E to A Ratio 0.5 TR Peak Velocity 206.0 cm/s TR Peak Gradient 17.0 mmHg FINDINGS LEFT VENTRICLE Normal left ventricular size. There is assymetric septal hypertrophy. The left ventricular systolic function is severely reduced with an estimated ejection fraction in th e range of 25-30%. Overall global hypokinesis. Inferior wall akinesis, overall inferior wall thinned out, consistent with scar. RIGHT VENTRICLE Grossly normal appearing in limited views. LEFT ATRIUM The left atrial size is upper limits of normal. RIGHT ATRIUM The right atrial size is normal. ATRIAL SEPTUM Normal atrial septal thickness AORTA The aortic root and proximal ascending aorta are normal in size on limited imaging. MITRAL VALVE Mild mitral annular calcification. Trace mitral valve regurgitation. No mitral valve stenosis. AORTIC VALVE Aortic valve sclerosis is present. Mild thickening of the aortic valve leaflets. No aortic valve regurgitation. No aortic valve stenosis TRICUSPID VALVE Structurally normal tricuspid valve. There is trace tricuspid valve regurgitation. No tricuspid valve stenosis. PULMONARY VALVE Mild pulmonary valve regurgitation. The pulmonary valve is not well visualized. VESSELS The inferior vena cava is normal in size. PERICARDIUM No pericardial effusion. Edis Rubin DO (Electronically Signed) Final Date:17 December 2017 18:51
[2017-12-17 20:34] LABS: CREATININE 1.53 MG/DL (0.60-1.30)
== END 2017-12-17 20:45 | disposition home health service (06) | DRG 282 ==
LOC: NEDDLT 21:28 → HCIS 21:38
PROVIDERS: ADMIT Family Medicine; ATTEND Family Medicine
PROC: B2111ZZ Fluoroscopy of Multiple Coronary Arteries using Low Osmolar Contrast (ICD-10-PCS; 2017-12-16)
PROC: B2131ZZ Fluoroscopy of Multiple Coronary Artery Bypass Grafts using Low Osmolar Contrast (ICD-10-PCS; 2017-12-16)
PROC: B2151ZZ Fluoroscopy of Left Heart using Low Osmolar Contrast (ICD-10-PCS; 2017-12-16)
PROC: 4A023N7 Measurement of Cardiac Sampling and Pressure, Left Heart, Percutaneous Approach (ICD-10-PCS; principal; 2017-12-16 09:45)
DX: I21.4 Non-ST elevation (NSTEMI) myocardial infarction (principal); E87.70 Fluid overload, unspecified; E11.9 Type 2 diabetes mellitus without complications; I25.10 Atherosclerotic heart disease of native coronary artery without angina pectoris; I25.5 Ischemic cardiomyopathy; F12.90 Cannabis use, unspecified, uncomplicated; I10 Essential (primary) hypertension; Z95.5 Presence of coronary angioplasty implant and graft; Z86.73 Personal history of transient ischemic attack (TIA), and cerebral infarction without residual deficits; Z85.828 Personal history of other malignant neoplasm of skin; Z87.891 Personal history of nicotine dependence; Z82.49 Family history of ischemic heart disease and other diseases of the circulatory system; I25.2 Old myocardial infarction; Z79.82 Long term (current) use of aspirin; Z79.84 Long term (current) use of oral hypoglycemic drugs
CPT/HCPCS: 80048; 80061; 82565; 82948; 84484; 85025; 85027; 85610; 85730; 93005; 93306; 93459; 99152; 99153; C1769; C1893; J1644; J1815; J1940; J2250; J3010; J7030